=== PATIENT | male | born 1990 | race Caucasian/White ===

== ENCOUNTER → 2023-03-12 | Outpatient (CLI) | payer BC ==
--- NOTE | 2023-03-13 10:47 | CT ---
EXAMINATION TYPE: CT chest w con CT DLP: 447 mGycm, Automated exposure control for dose reduction was used. DATE OF EXAM: 03/12/2023 4:33 PM COMPARISON: 10/26/2022 CLINICAL INDICATION:Male, 32 years old with history of J18.1 LOBAR PNEUMONIA, UNSPECIFIED ORGANISM, h /o pneumonia, lung mass, f/u TECHNIQUE: Multiple axial images were obtained through the chest. Sagittal and coronal reformats were created for review. Contrast used:100 mL of Isovue 300 with IV Contrast Oral contrast used: none. FINDINGS: LUNGS/ PLEURA: Improved appearance of the right lower lobe airspace opacity seen on prior. There is p ersistent airspace opacities present. There is a nodule within the airspace opacities measuring 8 mm previously measured 9 mm. Few scattered nodular densities along the periphery of also improved larges t now measuring 8 mm, previously 10 mm smaller 1's are also seen in the left posterior aspect along t he descending is favored represent some atelectasis change. AIRWAY: Patent and unremarkable. HEART: Size within normal limits. MEDIASTINUM: No gross evidence of adenopathy. VASCULATURE: No aortic aneurysm. MUSCULOSKELETAL: No acute osseous abnormalities SOFT TISSUES/LYMPH NODES: Unremarkable. LOWER NECK: No significant findings. UPPER ABDOMEN: No significant findings. IMPRESSION: Interval improvement of right lower lobe airspace opacities with persistent nodular densi ty in posterior basilar atelectasis change. Continued follow-up recommended 6 months to one year is r ecommended. Findings favored represent sequela of prior infection in the absence of history of malign kush. No lymphadenopathy identified.
== END | disposition home or self-care (01) ==
LOC: RADCTMAIN 16:09
PROVIDERS: ATTEND Internal Medicine Critical Care Medicine
DX: J18.1 Lobar pneumonia, unspecified organism (principal); J98.4 Other disorders of lung
CPT/HCPCS: 71260; Q9967

== ENCOUNTER → 2023-08-26 | Outpatient (CLI) | payer BC ==
--- NOTE | 2023-08-26 12:08 | CT ---
EXAMINATION TYPE: CT chest w con DATE OF EXAM: 08/26/2023 COMPARISON: 03/12/2023 HISTORY: enlarged lymph nodes CT DLP: 446.3 mGycm, Automated exposure control for dose reduction was used. CONTRAST: Performed injected with 100ml mL of Isovue 300. TECHNIQUE: Axial images were obtained at 5 mm thick sections. Reconstructed images are reviewed on [facility] computer in the coronal plane. FINDINGS: Portion of the thyroid visualized is normal. There is a 0.4 cm peripheral nodule right midlung. Series 4 image 40. This may be new. There is a 1.1 cm pleural-based nodule posterior lateral right lung base. Series 4 image 52. This was present previously. Previous left lower lung field nodule is not identified. No enlarged mediastinal or hilar adenopathy is evident. Some nonenlarged infrahilar lymphadenopathy m ay be present, example image series 3 image 38. This appears stable. The ascending aorta diameter at the level of the main pulmonary artery is 3.4 cm. The main pulmonary artery diameter at the bifurca tion is 2.[address] sections are obtained through the upper abdomen. Abdomen is essentially unremarkable. IMPRESSION: 1. New 0.4 cm peripheral right lung nodule. 2. Stable posterior lateral right lung base nodule.
== END | disposition home or self-care (01) ==
LOC: RADCTMAIN 11:02
PROVIDERS: ATTEND Internal Medicine Critical Care Medicine
DX: R91.8 Other nonspecific abnormal finding of lung field (principal); R59.0 Localized enlarged lymph nodes
CPT/HCPCS: 71260; Q9967

== ENCOUNTER → 2025-02-04 | Outpatient (CLI) | payer BC ==
--- NOTE | 2025-02-04 16:44 | CT ---
EXAMINATION TYPE: CT chest wo con DATE OF EXAM: 02/04/2025 3:59 PM COMPARISON: CTs dating back to 10/26/2022. CLINICAL INDICATION: Male, 34 years old with history of R91.8 OTHER NONSPECIFIC ABNORMAL FINDING OF L LUCIO F; PHH, RIGHT LOWER LUNG PAIN X 2 YRS TECHNIQUE: Multiple axial images were obtained through the chest. Sagittal and coronal reformats were created for review. MIP was performed on a separate workstation. Contrast used: mL of (None if empty) Oral contrast used: (None if empty) CT DLP: 465.40 mGycm, Automated exposure control for dose reduction was used. FINDINGS: LUNGS/ PLEURA: Right lower lobe groups scattered opacities with a few nodules. There is at least 2 no dular areas also present first measuring 10 mm series 3 image 53 seconds measuring 8 mm series 3 imag e 39. No focal consolidation, pneumothorax or pleural effusion. AIRWAY: Patent and unremarkable. HEART: Size within normal limits. No significant coronary artery calcifications. MEDIASTINUM: No gross evidence of adenopathy. VASCULATURE: No aortic aneurysm. MUSCULOSKELETAL: No acute osseous abnormalities SOFT TISSUES/LYMPH NODES: Unremarkable. LOWER NECK: No significant findings. UPPER ABDOMEN: No significant findings. IMPRESSION: Right lower lobe somewhat grouped nodular opacities are seen dating back to 10/26/2022.. These are all not that different from the original examination to 10/26/2022. The larger nodule along the periphery i nferiorly is also not that changed. Etiology remains uncertain given its persistence over multiple ye ars. Findings could represent sequela prior infection. CT surveillance at a minimum should be conside red yearly. Ultimately consider bronchoscopy with tissue sampling for definitive diagnosis. [facility], , 02/04/2025 4:42 PM
== END | disposition home or self-care (01) ==
LOC: RADCTMAIN 15:29
PROVIDERS: ATTEND Internal Medicine
DX: R91.8 Other nonspecific abnormal finding of lung field (principal); J98.4 Other disorders of lung
CPT/HCPCS: 71250

== ENCOUNTER → 2025-02-26 | Outpatient (CLI) | payer BC ==
--- NOTE | 2025-02-26 08:23 | US ---
EXAMINATION TYPE: US liver DATE OF EXAM: 02/26/2025 COMPARISON: NONE CLINICAL INDICATION: Male, 34 years old with history of R74.01 ELEVATION OF LEVELS OF LIVER TRANSAMIN ASE L; TECHNIQUE: Grayscale and color Doppler imaging of the right upper quadrant was performed. FINDINGS: EXAM MEASUREMENTS: Liver Length: 17.1 cm Gallbladder Wall: 0.3 cm CBD: 0.3 cm Right Kidney: 9.6 x 5.4 x 5.6 cm Pancreas: obscured by overlying midline bowel gas Liver: scanned intercostally, measures in upper limits of normal Gallbladder: wnl Evidence for sonographic Osorio's sign: no CBD: visualized portions wnl, limited by overlying bowel gas Right Kidney: wnl IMPRESSION: 1. Borderline hepatomegaly [facility], , 02/26/2025 8:20 AM
== END | disposition home or self-care (01) ==
LOC: RADUSWWP 07:23
PROVIDERS: ATTEND Internal Medicine
DX: R74.01 Elevation of levels of liver transaminase levels (principal)
CPT/HCPCS: 76705

== ENCOUNTER → 2025-04-09 | Outpatient (CLI) | payer BC ==
[2025-04-09 20:10] LABS: Cholesterol 109.00 mg/dL (0.00-200.00); Creatine Kinase 156 U/L (35-257); HDL Cholesterol 37.90 mg/dL (40.00-60.00); Iron 89 UG/DL (65-175); LDH 172 U/L (120-246); Total Iron Binding Capacity 435 UG/DL (228-460); Triglycerides 106.00 mg/dL (0.00-149.00); VLDL Calculation 21.20 mg/dL (5.00-40.00)
[2025-04-09 20:11] LABS: ALT 89 U/L (10-49); AST 54 U/L (14-35); Albumin 5.0 g/dL (3.8-4.9); Albumin/Globulin Ratio 3.33 Ratio (1.60-3.17); Alkaline Phosphatase 93 U/L (41-126); Anion Gap 12.80 mmol/L (4.00-12.00); BUN/Creat Ratio 12.18 Ratio (12.00-20.00); Blood Urea Nitrogen 13.4 mg/dL (9.0-27.0); Calcium 9.5 mg/dL (8.7-10.3); Carbon Dioxide 25.2 mmol/L (21.6-31.8); Chloride 102 mmol/L (96-109); Ferritin 494.0 ng/mL (22.0-322.0); Globulin 1.5 g/dL (1.6-3.3); Glucose 90 mg/dL (70-110); LDL Cholesterol,Calculated 49.9 mg/dL (0.0-131.0); Potassium 4.1 mmol/L (3.5-5.5); Sodium 140 mmol/L (135-145); Total Protein 6.5 g/dL (6.2-8.2)
[2025-04-09 21:25] LABS: Hepatitis A Antibody IgM Nonreactive (Nonreactive); Hepatitis B Surface Antigen Nonreactive (Nonreactive); Hepatitis C IgG Antibody Nonreactive (Nonreactive)
== END | disposition home or self-care (01) ==
LOC: LABWHC1 14:55
PROVIDERS: ATTEND Internal Medicine
DX: E78.2 Mixed hyperlipidemia (principal); R16.0 Hepatomegaly, not elsewhere classified
CPT/HCPCS: 36415; 80053; 80061; 80074; 82390; 82525; 82550; 82728; 83516; 83540; 83550; 83615; 86038; 86376